=== PATIENT | female | born 1970 | race Two or more races ===

== ENCOUNTER 2017-02-06 11:28 | Outpatient (CLI) | payer OTHER | END 2017-02-06 11:32 | disposition home or self-care (01) | LOC: SONOGRAMA 11:28 | DX: N63.42 Unspecified lump in left breast, subareolar (principal); N60.11 Diffuse cystic mastopathy of right breast; N60.12 Diffuse cystic mastopathy of left breast ==

== ENCOUNTER 2018-06-14 11:29 | Outpatient (CLI) | payer OTHER | END 2018-06-14 11:48 | disposition home or self-care (01) | LOC: SONOGRAMA 11:29 | DX: N60.11 Diffuse cystic mastopathy of right breast (principal) ==

== ENCOUNTER 2019-09-09 11:49 | Outpatient (CLI) | payer OTHER | END 2019-09-09 12:02 | disposition home or self-care (01) | LOC: SONOGRAMA 11:49 | PROVIDERS: ATTEND Surgery | DX: N60.11 Diffuse cystic mastopathy of right breast (principal); N60.12 Diffuse cystic mastopathy of left breast ==